=== PATIENT | female | born 1965 ===

== ENCOUNTER 2017-07-14 10:24 | Outpatient (CLI) | payer OTHER | END 2017-07-14 10:36 | disposition home or self-care (01) | LOC: MAMO-SONO 10:24 | DX: N60.11 Diffuse cystic mastopathy of right breast (principal); N60.12 Diffuse cystic mastopathy of left breast; Z12.31 Encounter for screening mammogram for malignant neoplasm of breast ==

== ENCOUNTER 2018-07-16 10:04 | Outpatient (CLI) | payer OTHER | END 2018-07-16 10:17 | disposition home or self-care (01) | LOC: MAMO-SONO 10:04 | DX: N63.10 Unspecified lump in the right breast, unspecified quadrant (principal); N63.20 Unspecified lump in the left breast, unspecified quadrant; Z12.31 Encounter for screening mammogram for malignant neoplasm of breast ==

== ENCOUNTER 2019-07-18 08:37 | Outpatient (CLI) | payer OTHER | END 2019-07-18 08:53 | disposition home or self-care (01) | LOC: MAMO-SONO 08:37 | DX: Z12.31 Encounter for screening mammogram for malignant neoplasm of breast (principal); Z87.898 Personal history of other specified conditions; D25.0 Submucous leiomyoma of uterus; N63.10 Unspecified lump in the right breast, unspecified quadrant; N63.20 Unspecified lump in the left breast, unspecified quadrant ==